=== PATIENT | male | born 1980 | race Native Hawaiian/Other Pacific Islander ===

== ENCOUNTER 2019-06-24 12:32 | Outpatient (CLI) | payer OTHER | END 2019-06-24 20:10 | disposition home or self-care (01) | LOC: MRI 12:32 | DX: M79.671 Pain in right foot (principal); T81.89XA Other complications of procedures, not elsewhere classified, initial encounter | CPT/HCPCS: A9576 ==

== ENCOUNTER 2020-02-12 17:38 | Inpatient (IN) | payer OTHER ==
[2020-02-12] VITALS (10 sets, daily range): BP systolic 97–123; BP diastolic 67–83; TEMP 97.1; Ht 182.9 cm; Wt 71.7 kg
[~2020-02-12] VITALS: Ht 182.9 cm; Wt 71.7 kg
[2020-02-12 22:23] LABS: PLATELET COUNT 309 K/uL (142-355)
[2020-02-12 22:41] LABS: POTASSIUM 4.5 mmol/L (3.6-5.2); SODIUM 138 mmol/L (136-145)
[2020-02-12 23:21] LABS: PARTIAL THROMBOPLASTIN TIME 28.3 SECONDS (24.5-33.6)
[2020-02-13] VITALS (24 sets, daily range): BP systolic 96–1098; BP diastolic 59–81; TEMP 97.5–98.8
[2020-02-13 06:07] LABS: PLATELET COUNT 284 K/uL (142-355)
[2020-02-13 06:58] LABS: POTASSIUM 3.5 mmol/L (3.6-5.2)
[2020-02-14] VITALS (24 sets, daily range): BP systolic 104–148; BP diastolic 67–85; TEMP 97.6–99.4
[2020-02-14 06:03] LABS: PLATELET COUNT 227 K/uL (142-355)
[2020-02-14 06:20] LABS: POTASSIUM 3.4 mmol/L (3.6-5.2)
[2020-02-14] MEDS ORDERED: LIPITOR40 MG PO (18:43)
[2020-02-14] MEDS ORDERED: HUMALOG KW100 UNIT/M SC (18:46)
[2020-02-14] MEDS ORDERED: LANTUS100 UNIT/M SC ×2 (18:46→18:48)
[2020-02-14] MEDS ORDERED: LINEZOLID600 MG PO (18:49)
[2020-02-14] MEDS ORDERED: POT CHLORIDE10 MEQ PO (18:52)
[2020-02-14] MEDS ORDERED: IBU800 MG PO (18:53)
[2020-02-15] VITALS (24 sets, daily range): BP systolic 111–142; BP diastolic 70–83; TEMP 97.2–99.8
[2020-02-15 06:40] LABS: PLATELET COUNT 172 K/uL (142-355)
[2020-02-15 06:59] LABS: POTASSIUM 2.9 mmol/L (3.6-5.2)
[2020-02-16] VITALS (20 sets, daily range): BP systolic 115–144; BP diastolic 73–87; TEMP 97.1–98.6
[2020-02-16 08:05] LABS: PLATELET COUNT 199 K/uL (142-355)
[2020-02-17 04:00] VITALS: BP 113/73; TEMP 98.1
[2020-02-17 05:57] LABS: PLATELET COUNT 237 K/uL (142-355)
[2020-02-17 06:02] LABS: POTASSIUM 3.4 mmol/L (3.6-5.2)
[2020-02-17 08:00] VITALS: BP 126/81; TEMP 98.2
[2020-02-17 16:00] VITALS: BP 138/86; TEMP 98.2
[2020-02-17 20:29] VITALS: BP 123/80; TEMP 97.5
[2020-02-18] VITALS: BP 110/70; TEMP 98.4
[2020-02-18 04:00] VITALS: BP 110/68; TEMP 98.1
[2020-02-18 06:07] LABS: PLATELET COUNT 312 K/uL (142-355)
[2020-02-18 08:00] VITALS: BP 109/74; TEMP 98.4
[2020-02-18 12:00] VITALS: BP 121/73; TEMP 98.5
[2020-02-18 16:00] VITALS: BP 107/64; TEMP 98.3
[2020-02-18 20:00] VITALS: BP 126/70; TEMP 98.4
[2020-02-19] VITALS (7 sets, daily range): BP systolic 109–154; BP diastolic 74–100; TEMP 98–98.7
[2020-02-19 06:26] LABS: PLATELET COUNT 317 K/uL (142-355)
[2020-02-20 04:00] VITALS: BP 129/83; TEMP 98.7
[2020-02-20 06:21] LABS: PLATELET COUNT 352 K/uL (142-355)
[2020-02-20 08:00] VITALS: BP 104/67; TEMP 98.4
[2020-02-20 12:00] VITALS: BP 117/71; TEMP 98.1
[2020-02-20 16:00] VITALS: BP 107/71; TEMP 98.1
[2020-02-20 20:00] VITALS: BP 111/71; TEMP 98.2
[2020-02-21] VITALS (7 sets, daily range): BP systolic 98–115; BP diastolic 64–80; TEMP 97.7–98.4
[2020-02-21 06:09] LABS: PLATELET COUNT 307 K/uL (142-355)
[2020-02-21 06:28] LABS: POTASSIUM 3.8 mmol/L (3.6-5.2)
[2020-02-22 03:27] VITALS: BP 110/83; TEMP 98.2
[2020-02-22 05:52] LABS: PLATELET COUNT 297 K/uL (142-355)
[2020-02-22 08:00] VITALS: BP 119/87; TEMP 97.9
[2020-02-22 12:00] VITALS: BP 115/73; TEMP 98.4
[2020-02-22] MEDS ORDERED: VITAMIN D1000 UNIT PO (12:45)
[2020-02-22] MEDS ORDERED: VITAMIN C500 M7 PO (12:45)
[2020-02-22] MEDS ORDERED: ZINC220 M1 PO (12:46)
[2020-02-22] MEDS ORDERED: PEPCID20 MG PO (12:47)
== END 2020-02-22 17:30 | disposition home or self-care (01) | DRG 177 ==
LOC: ICU 17:38 → MED/SURG 02-17 01:40
PROVIDERS: Internal Medicine; Internal Medicine Endocrinology, Diabetes & Metabolism; Specialist
DX: U07.1 COVID-19 (principal); E10.10 Type 1 diabetes mellitus with ketoacidosis without coma; E87.1 Hypo-osmolality and hyponatremia; K92.0 Hematemesis; R78.81 Bacteremia; E87.6 Hypokalemia; E10.43 Type 1 diabetes mellitus with diabetic autonomic (poly)neuropathy; K31.84 Gastroparesis; E83.39 Other disorders of phosphorus metabolism; E87.8 Other disorders of electrolyte and fluid balance, not elsewhere classified; N39.498 Other specified urinary incontinence; R00.0 Tachycardia, unspecified; B95.62 Methicillin resistant Staphylococcus aureus infection as the cause of diseases classified elsewhere
CPT/HCPCS: 36415; 36600; 80048; 80053; 80202; 81000; 81002; 82271; 82805; 83605; 83735; 83986; 84100; 84443; 84484; 85014; 85018; 85027; 85610; 85730; 86850; 86900; 86901; 87040; 87077; 87185; 87186; 87205; 93005; 94760; J1650; J1815; J2405; J2543; J2550; J3230; J3370; J3480; J3490; Q9963

== ENCOUNTER 2021-11-08 14:10 | Emergency (ER) | payer OTHER ==
[~2021-11-08] VITALS: Ht 185.4 cm; Wt 71.7 kg
[~2021-11-08 14:10] MED LIST: HUMALOG KW100 UNIT/M SC; IBU800 MG PO; LANTUS100 UNIT/M SC; LINEZOLID600 MG PO; LIPITOR40 MG PO; PEPCID20 MG PO; POT CHLORIDE10 MEQ PO; VITAMIN C500 M7 PO; VITAMIN D1000 UNIT PO; ZINC220 M1 PO
[2021-11-08 14:13] VITALS: TEMP 98.9
[2021-11-08 14:59] LABS: PLATELET COUNT 326 K/uL (142-355)
[2021-11-08 15:28] LABS: POTASSIUM 3.7 mmol/L (3.6-5.2)
[2021-11-08 17:59] VITALS: BP 124/80
== END 2021-11-08 18:33 | disposition still patient (30) ==
LOC: ED 14:10
PROVIDERS: Emergency Medicine
DX: E11.65 Type 2 diabetes mellitus with hyperglycemia (principal); Z79.4 Long term (current) use of insulin; R79.89 Other specified abnormal findings of blood chemistry; Z11.52 Encounter for screening for COVID-19
CPT/HCPCS: 36415; 36600; 80053; 81002; 82150; 82805; 82948; 83690; 84484; 85027; 87635; 93005; 96360; 96361; 96374; 96375; 99284; J1815; J2405; J7120; U0003

== ENCOUNTER 2021-12-12 11:27 | Observation (INO) | payer OTHER ==
[~2021-12-12] VITALS: Ht 185.4 cm; Wt 74.5 kg
[2021-12-12 11:30] VITALS: BP 103/76; TEMP 98
[2021-12-12 12:22] LABS: PLATELET COUNT 342 K/uL (142-355)
[2021-12-12 15:30] VITALS: BP 131/77; TEMP 97.8
[2021-12-12 19:30] VITALS: BP 125/86; TEMP 98.4
[2021-12-12 19:54] VITALS: BP 131/77; TEMP 97.8; Ht 185.4 cm; Wt 74.5 kg
[2021-12-12 23:57] VITALS: BP 117/80; TEMP 98.7
[2021-12-13 04:26] VITALS: BP 131/83; TEMP 98
[2021-12-13 05:04] LABS: PLATELET COUNT 185 K/uL (142-355)
[2021-12-13 05:25] LABS: POTASSIUM 3.9 mmol/L (3.6-5.2)
[2021-12-13 08:26] VITALS: BP 121/78; TEMP 98.4
[2021-12-13] MEDS ORDERED: TRAZ50TA36 PO (10:10)
[2021-12-13] MEDS ORDERED: OMEPRAZOLE DR40 MG PO (10:11)
[2021-12-13] MEDS ORDERED: METF100038 PO (10:12)
[2021-12-13] MEDS ORDERED: METO-837 PO (10:12)
[2021-12-13] MEDS ORDERED: LIPITOR80 MG PO (10:13)
[2021-12-13] MEDS ORDERED: PANTOPRAZOLE 40MG TA PO (10:13)
[2021-12-13] MEDS ORDERED: LANTUS100 UNIT/M SC (11:35)
[2021-12-13] MEDS ORDERED: NOVOLOG FL100 UNIT/M SC (11:38)
[2021-12-13] MEDS ORDERED: ONDA4TAB3 PO (11:39)
[2021-12-13] MEDS ORDERED: VITAMIN C500 MG PO (11:39)
[2021-12-13] MEDS ORDERED: ZINC50 M1 PO (11:39)
[2021-12-13 12:00] VITALS: BP 114/82; TEMP 98.2
[2021-12-13 16:00] VITALS: BP 111/77; TEMP 98
[2021-12-13 20:04] VITALS: BP 112/76; TEMP 98.6
[2021-12-13 23:58] VITALS: BP 115/79; TEMP 97.6
[2021-12-14 04:02] VITALS: BP 112/73; TEMP 98.2
[2021-12-14 08:00] VITALS: BP 108/70; TEMP 97.5
== END 2021-12-14 13:42 | disposition home or self-care (01) ==
LOC: ED 11:27 → MED/SURG 13:40
PROVIDERS: Emergency Medicine; ADMIT Internal Medicine; ATTEND Internal Medicine
DX: N17.8 Other acute kidney failure (principal); K52.89 Other specified noninfective gastroenteritis and colitis; M15.8 Other polyosteoarthritis; I10 Essential (primary) hypertension; E78.49 Other hyperlipidemia; E86.0 Dehydration; E11.65 Type 2 diabetes mellitus with hyperglycemia; Z89.429 Acquired absence of other toe(s), unspecified side; F79 Unspecified intellectual disabilities
CPT/HCPCS: 36415; 80053; 81002; 82948; 83735; 84484; 85027; 87635; 93005; 96360; 96361; 96365; 96366; 96367; 96372; 96374; 96375; 99220; 99284; G0378; J1815; J2405; J3475; J3490; U0003

== ENCOUNTER 2021-12-30 17:00 | Emergency (ER) | payer OTHER ==
[~2021-12-30] VITALS: Ht 185.4 cm; Wt 79.4 kg
[~2021-12-30 17:00] MED LIST changes: +LIPITOR80 MG PO; +METF100038 PO; +METO-837 PO; +NOVOLOG FL100 UNIT/M SC; +OMEPRAZOLE DR40 MG PO; +ONDA4TAB3 PO; +PANTOPRAZOLE 40MG TA PO; +TRAZ50TA36 PO; +VITAMIN C500 MG PO; +ZINC50 M1 PO
[2021-12-30 18:24] LABS: PLATELET COUNT 296 K/uL (142-355)
[2021-12-30 19:21] LABS: POTASSIUM 4.4 mmol/L (3.6-5.2)
[2021-12-30 19:29] LABS: PARTIAL THROMBOPLASTIN TIME 21.1 SECONDS (24.5-33.6)
[2021-12-30 21:06] VITALS: BP 128/85; TEMP 98.3
== END 2021-12-30 21:06 | disposition home or self-care (01) ==
LOC: ED 17:00
PROVIDERS: Emergency Medicine
DX: K29.60 Other gastritis without bleeding (principal); E86.0 Dehydration
CPT/HCPCS: 36415; 80053; 81002; 83690; 84484; 85027; 85610; 85730; 93005; 96360; 96361; 96374; 96375; 96376; 99284; J2270; J2405; Q9963

== ENCOUNTER 2022-01-28 18:27 | Emergency (ER) | payer OTHER ==
[~2022-01-28] VITALS: Ht 185.4 cm; Wt 79.4 kg
[2022-01-28 19:48] LABS: PLATELET COUNT 384 K/uL (142-355)
[2022-01-28 19:51] LABS: POTASSIUM 4.4 mmol/L (3.6-5.2)
[2022-01-28 22:45] VITALS: BP 117/78; TEMP 98
== END 2022-01-28 22:45 | disposition home or self-care (01) ==
LOC: ED 18:27
PROVIDERS: Emergency Medicine Emergency Medical Services
DX: R11.2 Nausea with vomiting, unspecified (principal); E11.43 Type 2 diabetes mellitus with diabetic autonomic (poly)neuropathy; K31.84 Gastroparesis; Z79.84 Long term (current) use of oral hypoglycemic drugs; Z79.4 Long term (current) use of insulin
CPT/HCPCS: 36415; 36600; 80053; 81002; 82150; 82805; 83690; 83735; 84484; 85027; 93005; 96360; 96361; 96374; 96375; 99284; J2405; J3490; Q9963